=== PATIENT | female | born 1950 | race Caucasian/White ===

== ENCOUNTER 2017-12-26 11:45 | Emergency (ER) | payer MEDICARE, OTHER ==
[~2017-12-26] VITALS: Ht 177.8 cm; Wt 144.7 kg
[2017-12-26] MEDS ORDERED: IV NORMAL SALINE 1000 ML BAG IV ONE (13:00)
[2017-12-26] MEDS ORDERED: AMLO5TAB4 PO (13:04)
[2017-12-26] MEDS ORDERED: LOSA1TAB39 PO (13:04)
[2017-12-26] MEDS ORDERED: ERGO500040 PO (13:04)
[2017-12-26] MEDS ORDERED: ALBU8.5H8 INH (13:04)
[2017-12-26] MEDS ORDERED: ESOM20CA PO (13:04)
[2017-12-26] MEDS ORDERED: NITR100C11 PO (13:04)
[2017-12-26] MEDS ORDERED: OXYC-128 PO (13:05)
[2017-12-26] MEDS ORDERED: SOMA PO (13:05)
--- NOTE | 2017-12-26 13:35 | NUR ---
verified with dr wilcox regarding code stroke ce scan, stated not a code stroke, order was a technicality error.
--- NOTE | 2017-12-26 13:42 | NUR ---
HEAD CT DONE, SALINE LOCK PLACED, LABS DRAWN-SENT, 1L 0.9NS BOLUS INFUSING, PT POSITIONED FOR COMFORT.
[2017-12-26 13:43] LABS: BASOPHILS % (AUTO) 0.5 % (0.0-2.0); EOSINOPHILS # (AUTO) 0.2 K/uL (0.0-0.7); EOSINOPHILS % (AUTO) 2.4 % (0.0-7.0); HEMATOCRIT 40.3 % (31.2-41.9); HEMOGLOBIN 13.7 g/dL (10.9-14.3); LYMPHOCYTES % (AUTO) 25.3 % (20.5-51.5); MEAN CORPUSCULAR HEMOGLOBIN 29.6 uug (24.7-32.8); MEAN CORPUSCULAR HGB CONC 34 g/dL (32.3-35.6); MEAN CORPUSCULAR VOLUME 87.3 fL (75.5-95.3); MONOCYTES # (AUTO) 0.7 K/uL (2.0-10.0); MONOCYTES % (AUTO) 8.4 % (0.0-11.0); NEUTROPHILS # (AUTO) 5.1 K/uL (1.8-8.9); NEUTROPHILS % (AUTO) 63.4 % (38.5-71.5); PLATELET COUNT (AUTO) 188 K/uL (179-408); RED BLOOD CELL COUNT(AUTO) 4.61 MIL/uL (3.63-4.92); WHITE BLOOD COUNT (AUTO) 8.1 K/uL (3.8-11.8)
[2017-12-26 13:55] LABS: POTASSIUM 3.8 mmol/L (3.5-5.1)
[2017-12-26 14:02] LABS: BILIRUBIN,DIRECT 0.1 mg/dL (0.0-0.2); BILIRUBIN,TOTAL 0.7 mg/dL (0.2-1.0); TOTAL PROTEIN, SERUM 7.5 g/dL (6.4-8.2)
[2017-12-26] MEDS ORDERED: NORMAL SALINE FLUSH 10 ML DISP.SYRIN ONE (15:03)
[2017-12-26] MEDS ORDERED: IV NORMAL SALINE 100 ML ONE (15:04)
[2017-12-26] MEDS ORDERED: IOHEXOL 350 100 ML INFUS..BTL ONE (15:05)
--- NOTE | 2017-12-26 15:39 | NUR ---
PT RETURNED FROM CT. PT POSITIONED FOR COMFORT.
--- NOTE | 2017-12-26 16:58 | NUR ---
MSE COMPLETED, PT HAD SALINE LOCK D/C'D INTACT. PT GOT DRESSESD/AMBULATED WITH FAMILY RELATIVE. TOOK ALL BELONGINGS.
[2017-12-26 17:21] VITALS: BP 135/65
== END 2017-12-26 17:00 | disposition home or self-care (01) ==
LOC: ER 11:47
DX: R42 Dizziness and giddiness (principal); I10 Essential (primary) hypertension; K21.9 Gastro-esophageal reflux disease without esophagitis; Z88.1 Allergy status to other antibiotic agents; Z88.8 Allergy status to other drugs, medicaments and biological substances; Z79.891 Long term (current) use of opiate analgesic; Z79.899 Other long term (current) drug therapy
CPT/HCPCS: 36415; 70030-TC; 70450; 70496; 71045; 83605; 85025; 85730; 87040; 93005; A4663; J3490; J7030; Q9967